=== PATIENT | male | born 1970 ===

== ENCOUNTER 2023-02-26 10:30 | Inpatient (IN) | payer OTHER ==
[~2023-02-26] VITALS: Ht 177.8 cm; Wt 76.2 kg
[2023-02-26] MEDS ORDERED: LIPITOR20 MG (13:48)
[2023-03-08] MEDS ORDERED: PERCOCET 5-3251 EACH PO (10:03)
[2023-03-08] MEDS ORDERED: MEDROLPACK PO (10:04)
[2023-03-08] MEDS ORDERED: COLACE100 MG PO (10:04)
== END 2023-03-09 12:54 | disposition home or self-care (01) | DRG 473 ==
LOC: O/R 03-08 05:55 → SURG 03-08 10:30 → O/R 03-08 16:58 → SURG 03-08 19:31
PROVIDERS: ADMIT Orthopaedic Surgery Orthopaedic Surgery of the Spine; ATTEND Orthopaedic Surgery Orthopaedic Surgery of the Spine
PROC: 0RT30ZZ Resection of Cervical Vertebral Disc, Open Approach (ICD-10-PCS; 2023-03-08)
PROC: 07DS0ZZ Extraction of Vertebral Bone Marrow, Open Approach (ICD-10-PCS; 2023-03-08)
PROC: 4A11X4G Monitoring of Peripheral Nervous Electrical Activity, Intraoperative, External Approach (ICD-10-PCS; 2023-03-08)
PROC: 0RG20A0 Fusion of 2 or more Cervical Vertebral Joints with Interbody Fusion Device, Anterior Approach, Anterior Column, Open Approach (ICD-10-PCS; principal; 2023-03-08 10:30)
DX: M50.022 Cervical disc disorder at C5-C6 level with myelopathy (principal); M50.021 Cervical disc disorder at C4-C5 level with myelopathy; M50.01 Cervical disc disorder with myelopathy, high cervical region